=== PATIENT | female | born 1980 | race Caucasian/White ===

== ENCOUNTER 2018-03-20 10:09 | Emergency (ER) | payer OTHER ==
[~2018-03-20] VITALS: Ht 167.6 cm; Wt 90.7 kg
[2018-03-20 10:46] VITALS: BP 119/81
[2018-03-20] MEDS ORDERED: OCUFLOX5 ML LEFT EYE (10:57)
[2018-03-20] MEDS ORDERED: TYLENOL EXTRA500 MG ORAL (10:57)
[2018-03-20] MEDS ORDERED: Tetracaine 0.5% Opth 4ml Soln LEFT EYE ONE (11:00)
[2018-03-20 11:03] VITALS: BP 119/81
--- NOTE | 2018-03-20 11:23 | Emergency Room Report ---
History of Present Illness General Chief Complaint: Eye Problems Source: Patient Present Illness HPI 37-year-old female presents ED complaining of left eye pain. States that pain started after she went to the beach yesterday. Was swimming in the ocean. States she was wearing her contacts at the time. Has her contacts since out. Notes redness and some discharge to the left eye. Pain is 8 out of 10, sharp, nonradiating. Denies photophobia. States vision is blurry. Denies fevers or chills. No other aggravating relieving factors. Denies any other associated symptoms Allergies: Coded Allergies: No Known Allergies (Unverified , 03/20/18) Patient History Past Medical History: none Past Surgical History: none Pertinent Family History: none Social History: Denies: smoking, alcohol use, drug use Last Menstrual Period: 03/09/18 Now: No Immunizations: UTD Reviewed Nursing Documentation: PMH: Agreed; PSxH: Agreed Review of Systems All Other Systems: negative except mentioned in HPI Physical Exam Vital Signs Date Time Temp Pulse Resp B/P (MAP) Pulse Ox O2 Delivery O2 Flow Rate FiO2 03/20/18 10:24 98.3 69 20 119/81 98 Room Air 98.2 Sp02 EP Interpretation: reviewed, normal General Appearance: no apparent distress, alert, GCS 15, non-toxic Head: normocephalic Eyes: left eye visual acuity - 20/100, left eye Scleral Injection; bilateral eye normal inspection, bilateral eye PERRL ENT: normal ENT inspection Neck: full range of motion, supple/symm/no masses Respiratory: normal inspection Cardiovascular #1: normal inspection Gastrointestinal: normal inspection Rectal: deferred Genitourinary: no CVA tenderness Musculoskeletal: normal inspection Neurologic: alert, oriented x3, responsive, motor strength/tone normal, sensory intact, speech normal Psychiatric: normal inspection Skin: normal inspection Lymphatic: normal inspection Medical Decision Making Diagnostic Impression: Primary Impression: Conjunctivitis Qualified Codes: H10.9 - Unspecified conjunctivitis ER Course Hospital Course 48-year-old F presents to ED with L eye redness/pain/discharge Differential diagnoses include: conjunctivitis, traumatic iritis, foreign body, corneal abrasion Clinical course Patient placed on stretcher. After initial history, physical exam revealed a female no acute distress. There is injected sclera on the left eye. Some discharge noted around the eye. Consistent with conjunctivitis. Given tetracaine drop or analgesic relief. We will discharge on Ocuflox and Tylenol. I will provide ophthalmology referral Diagnosis - conjunctivitis Stable and discharged to home with prescription for Ocuflox, tylenol. Followup with PMD/Optho. Return to ED if symptoms recur or worsen Last Vital Signs Date Time Temp Pulse Resp B/P (MAP) Pulse Ox O2 Delivery O2 Flow Rate FiO2 03/20/18 11:03 98.2 74 20 119/81 98 Room Air 98.2 Status: improved Disposition: HOME, SELF-CARE Condition: Stable Scripts Acetaminophen* (TYLENOL EXTRA STRENGTH*) 500 Mg Tablet 500 MG ORAL Q8H PRN for Prn Headache/Temp > 101, #30 TAB 0 Refills Prov: Barry Reza MD 03/20/18 Ofloxacin (OCUFLOX) 5 Ml Drops 1 DROP LEFT EYE QID for 7 Days, ML Prov: Barry Reza MD 03/20/18 Referrals: Andreas Wise MD, Maziar M.D. MD Savar, Aaron MD Patient Instructions: Bacterial Conjunctivitis, [id number] Barry Reza MD Mar 20, 2018 11:23
== END 2018-03-20 11:04 | disposition home or self-care (01) ==
LOC: EMR 11:00
DX: H10.9 Unspecified conjunctivitis (principal)
CPT/HCPCS: 99284